=== PATIENT | female | born 1940 | race Caucasian/White ===

== ENCOUNTER → 2016-09-01 | Outpatient (CLI) | payer OTHER ==
[~2016-09-01] MED LIST: ALEVE220 M1 PO; AMLODIPINE BESY10 MG OR; APAP500 PO; ASPIRIN EC325 M1 PO; ASPIRIN EC81 M1 PO; ASPIRIN325 PO; ASPIRIN81 M2 PO; ATENOLOL 100MG100 M2 PO; BACTRIM PO; BENZONATATE100 MG PO; BYSTOLIC10 MG PO; BYSTOLIC20 MG PO; CEPHALEXIN 500500 M1 PO; COUMADIN 3 MG TA3 MG PO; EFFIENT10 MG PO; FAMOTIDINE20 MG PO; GLIPIZIDE XL10 MG PO; GLUCOPHAGE XR500 MG PO; GLUCOPHAGE1000 MG PO; GLYBURIDE 5 MG T5 M1 PO; HCTZ PO; HYDROCHLOROTHIA25 M1 PO; HYDROCHLOROTHIA25 M2 PO; ICY HOT PAIN70.8 GM; ICY HOT1 EAC1 TOP; LIPITOR80 MG PO; LISINOPRIL20 MG PO; LORTAB 5 MG/5001 TA1 PO; LOSARTAN POTASS50 MG PO; MOBIC15 MG PO; MOM PO; MULTIVITAMINS1 EAC7 PO; NEXIUM40 MG; NEXIUM40 MG PO; NORVASC 2.5 MG2.5 M1 PO; NORVASC 5 MG TAB5 MG PO; PERCOCET 5-3251 EACH PO; PLAVIX 75 MG TA75 M1 PO; PLAVIX 75 MG TA75 MG PO; SENOKOT-S1 TA1 PO; TESSALON PERLE100 MG PO; VOLTAREN GEL 1100 G1 TOP; VOLTAREN GEL 1100 G2; ZOCOR40 MG PO
== END ==
LOC: RAD 09:20
DX: M79.1 Myalgia (principal)

== ENCOUNTER → 2018-01-19 | Outpatient (CLI) | payer OTHER | LOC: RAD 14:14 | DX: M25.512 Pain in left shoulder (principal) ==

== ENCOUNTER → 2019-08-28 | Outpatient (CLI) | payer OTHER ==
[~2019-08-28] MED LIST changes: +ALLOPURINOL 10100 M1 PO; +METFORMIN HCL500 M3 PO; +MITIGARE0.6 MG PO; +NITROSTAT0.4 M1 SUBLING; +TRAMADOL 50 MG50 MG PO
== END ==
LOC: SJCVCIMAG 08-14 17:01
PROVIDERS: ATTEND Internal Medicine Cardiovascular Disease
DX: I08.2 Rheumatic disorders of both aortic and tricuspid valves (principal); E78.00 Pure hypercholesterolemia, unspecified; I27.20 Pulmonary hypertension, unspecified; I25.10 Atherosclerotic heart disease of native coronary artery without angina pectoris; I73.9 Peripheral vascular disease, unspecified; Z87.891 Personal history of nicotine dependence; Z79.899 Other long term (current) drug therapy; Z79.82 Long term (current) use of aspirin; Z95.1 Presence of aortocoronary bypass graft; Z88.8 Allergy status to other drugs, medicaments and biological substances; Z95.828 Presence of other vascular implants and grafts

== ENCOUNTER → 2019-09-13 | Outpatient (CLI) | payer OTHER ==
[~2019-09-13] VITALS: Ht 167.6 cm; Wt 73.9 kg
[2019-09-13 07:05] VITALS: BP 159/40
[2019-09-13 07:20] LABS: HEMATOCRIT 38.9 % (37.0-47.0); HEMOGLOBIN 12.8 gm/dL (12.0-15.0); MCHC 32.8 g/dL (28.0-37.0); MCV 94.3 fL (80.0-100.0); RBC 4.12 mil/uL (4.20-5.00); RDW 14.8 % (10.5-14.5)
[2019-09-13 07:37] LABS: CALCIUM 9.5 mg/dL (8.5-10.1); CREATININE 1.3 mg/dL (0.6-1.0); POTASSIUM 5.4 mmol/L (3.5-5.1)
--- NOTE | 2019-09-14 11:47 | EKG ---
[facility] Ellie [address] [address] ELECTROCARDIOGRAM REPORT Name: KAMRYN YOUNGBLOOD Room #: REG [facility].#: [id number] Admission: 09/13/19 Attend Phys: Salvador David MD Discharge: Date of : 44 Report #: [id number] THIS REPORT FOR: cc: Kavin Locke MD, Rene P. MD Couchonnal, Luis F. 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 ALEXANDER : 1940 Requested By: Hasmukh Dalton Order Number: [id number] MD: Inderjit Becerra Measurements Intervals [place] Rate: 61 P: 76 SD: 195 QRS: 12 QRSD: 117 T: 162 QT: 426 QTc: 429 Interpretive Statements Sinus rhythm Probable left atrial enlargement LVH with secondary repolarization abnormality Anteroseptal infarct, possibly acute Compared to ECG 09/20/2011 07:48:47 Electronically Signed On 09-14-2019 11:46:15 CDT by Inderjit Becerra [email or web address] <ELECTRONICALLY SIGNED> By: Inderjit Beecrra MD 09/14/19 1146 5 0706 Inderjit Becerra MD /EPI
== END | disposition home or self-care (01) ==
LOC: CATH 06:43
PROVIDERS: Internal Medicine Cardiovascular Disease; ATTEND Nuclear Medicine Nuclear Cardiology
DX: I25.10 Atherosclerotic heart disease of native coronary artery without angina pectoris (principal); I70.238 Atherosclerosis of native arteries of right leg with ulceration of other part of lower leg; I70.213 Atherosclerosis of native arteries of extremities with intermittent claudication, bilateral legs; L97.919 Non-pressure chronic ulcer of unspecified part of right lower leg with unspecified severity; I70.1 Atherosclerosis of renal artery; I10 Essential (primary) hypertension; E78.5 Hyperlipidemia, unspecified; N28.9 Disorder of kidney and ureter, unspecified; E11.9 Type 2 diabetes mellitus without complications; K21.9 Gastro-esophageal reflux disease without esophagitis; M06.9 Rheumatoid arthritis, unspecified; M10.9 Gout, unspecified; Z95.1 Presence of aortocoronary bypass graft; Z98.890 Other specified postprocedural states; Z90.710 Acquired absence of both cervix and uterus; Z90.49 Acquired absence of other specified parts of digestive tract; Z79.899 Other long term (current) drug therapy

== ENCOUNTER → 2020-03-03 | Outpatient (CLI) | payer OTHER | LOC: SJCVCIMAG 08:47 | PROVIDERS: ATTEND Internal Medicine Cardiovascular Disease | DX: I70.203 Unspecified atherosclerosis of native arteries of extremities, bilateral legs (principal); R94.31 Abnormal electrocardiogram [ECG] [EKG]; I25.10 Atherosclerotic heart disease of native coronary artery without angina pectoris; E78.00 Pure hypercholesterolemia, unspecified; I77.9 Disorder of arteries and arterioles, unspecified; E11.9 Type 2 diabetes mellitus without complications; I12.9 Hypertensive chronic kidney disease with stage 1 through stage 4 chronic kidney disease, or unspecified chronic kidney disease; N18.9 Chronic kidney disease, unspecified; I70.1 Atherosclerosis of renal artery; Z95.1 Presence of aortocoronary bypass graft; Z95.2 Presence of prosthetic heart valve; Z79.82 Long term (current) use of aspirin; Z79.899 Other long term (current) drug therapy; Z87.891 Personal history of nicotine dependence ==

== ENCOUNTER → 2020-03-13 | Outpatient (CLI) | payer OTHER ==
[~2020-03-13] VITALS: Ht 167.6 cm; Wt 75.7 kg
[~2020-03-13] MED LIST changes: +EDARBI40 MG PO; +OMEPRAZOLE10 MG PO
[2020-03-13 07:25] VITALS: BP 132/62
[2020-03-13 07:42] LABS: HEMATOCRIT 35.7 % (37.0-47.0); HEMOGLOBIN 11.4 gm/dL (12.0-15.0); MCH 30.1 pg (26.0-34.0); MCHC 31.9 g/dL (28.0-37.0); MCV 94.4 fL (80.0-100.0); RBC 3.78 mil/uL (4.20-5.00); RDW 15.4 % (10.5-14.5); WBC 5.9 thou/uL (4.0-11.0)
[2020-03-13 07:47] LABS: CALCIUM 10.1 mg/dL (8.5-10.1); CREATININE 1.5 mg/dL (0.6-1.0)
--- NOTE | 2020-03-13 14:40 | CATHLAB ---
[facility] [place] [address] INVASIVE PROCEDURE REPORT Name: KAMRYN YOUNGBLOOD Room #: REG BRIT [facility]#: [id number] Admission: 03/13/20 Attend Phys: Salvador David MD Discharge: Date of : 42 Report #: [id number] THIS REPORT FOR: cc: Kavin Locke MD, Rene P. MD Mancuso, Gerald M. MD [facility] ~ APPROVED REPORT Study performed: 03/13/2020 09:55:02 Patient Details Patient Status: Out-Patient Room #: The patient is a 79 year-old female Event Personnel Hasmukh Dalton Chief Nursing Officer, Lexie Escobar RTR Monitor, Brenna Smith RT(R)() Nury Rosenberg Wes RN Procedures Performed Coronaries Angiography and Bypass Grafts 442637 CORCABG Hemostasis w/ Mynx 03859 Initial Mod Sed Same Phys/QHP Gr5y 286871 20055 Mod Sed Same Phys/QHP Ea 398096 Procedure Narrative The was infiltrated with 1% Lidocaine subcutaneous anesthesia. A SHEATH BRITE-TIP 6F X 11CM ([id number]) sheath was inserted into the LFA^. Coronary angiography was performed using coronary diagnostic catheters. The right coronary system was accessed and visualized with a JR4 catheter. The left coronary system was accessed and visualized with a JL4 catheter. Closure device was deployed with a Fr MYNXGRIP 6/7F #[id number]. The patient tolerated the procedure well and there were no complications associated with the procedure. There was no hematoma. Intraoperative Conscious Sedation Sedation start time: 8:23 Case end Time: 10:38 Fentanyl 150 mcg Versed 3 mg Sedation and fluoro is a combination of a runoff procedure and a heart cath procedure. Fluoro Time: 14.21 minutes Dose: DAP 71091.60 cGycm2 785 mGy Contrast Type and Amount: Visipaque 149 ml [facility] [place] [address] INVASIVE PROCEDURE REPORT Name: KAMRYN YOUNGBLOOD Room #: REG [facility]#: [id number] Admission: 03/13/20 Attend Phys: Salvador David, Discharge: Date of : 42 Report #: [id number] Hemodynamics The aortic pressure is 194/60 mmHg with a mean of 111 mmHg. PCI Technique Lesion Percutaneous coronary intervention was performed on the Tibio-peroneal trunk. Conclusion #1. Left main moderately disease giving rise to an occluded LAD and the circumflex OM which is moderate in distribution. #2 circumflex OM is an eccentric 50 to 60% proximal lesion with brisk flow into a moderate size distal vessel. This does not appear progressed significantly since the prior exam. #3 LAD is proximally occluded #4 a CUELLO to LAD is intact with diffuse disease in the relatively small LAD system. No significant occlusive disease #5 the [place] right coronary artery occluded proximally #6 graft to the PDA occluded #7 probable radial graft has an eccentric proximal lesion of 40 to 50% filling a moderately extensive diagonal branch small in caliber but patent. Recommendations and plan: Continue aggressive risk factor modification. No clear evidence for coronary intervention here. Minimal progression since prior exam. <ELECTRONICALLY SIGNED> By: Hasmukh Dalton MD, FACC 03/13/20 1440 39 39 Hasmukh Dalton MD, FACC /INF
== END | disposition home or self-care (01) ==
LOC: CATH 06:54
PROVIDERS: ATTEND Nuclear Medicine Nuclear Cardiology
DX: I25.810 Atherosclerosis of coronary artery bypass graft(s) without angina pectoris (principal); I70.221 Atherosclerosis of native arteries of extremities with rest pain, right leg; I70.1 Atherosclerosis of renal artery; I10 Essential (primary) hypertension; E11.9 Type 2 diabetes mellitus without complications; E78.00 Pure hypercholesterolemia, unspecified; K21.9 Gastro-esophageal reflux disease without esophagitis; M10.9 Gout, unspecified; M06.9 Rheumatoid arthritis, unspecified; Z98.890 Other specified postprocedural states; Z79.899 Other long term (current) drug therapy; Z86.73 Personal history of transient ischemic attack (TIA), and cerebral infarction without residual deficits; Z90.49 Acquired absence of other specified parts of digestive tract; Z90.710 Acquired absence of both cervix and uterus; Z95.1 Presence of aortocoronary bypass graft; Z79.01 Long term (current) use of anticoagulants; Z95.2 Presence of prosthetic heart valve; Z87.891 Personal history of nicotine dependence; Z79.82 Long term (current) use of aspirin

== ENCOUNTER → 2020-05-06 | Outpatient (CLI) | payer OTHER | LOC: LAB 11:23 | PROVIDERS: ATTEND Family Medicine | DX: R05 Cough (principal); Z20.822 Contact with and (suspected) exposure to COVID-19 ==

== ENCOUNTER → 2020-05-08 | Outpatient (CLI) | payer OTHER | LOC: RAD 12:51 | PROVIDERS: ATTEND Family Medicine | DX: J98.8 Other specified respiratory disorders (principal); J98.11 Atelectasis; J92.9 Pleural plaque without asbestos; J90 Pleural effusion, not elsewhere classified; J98.4 Other disorders of lung ==

== ENCOUNTER → 2020-05-21 | Outpatient (CLI) | payer OTHER | LOC: RAD 11:50 | PROVIDERS: ATTEND Family Medicine | DX: J90 Pleural effusion, not elsewhere classified (principal); I50.9 Heart failure, unspecified; J98.4 Other disorders of lung ==

== ENCOUNTER → 2020-06-02 | Outpatient (CLI) | payer OTHER | LOC: SJCVCIMAG 07:53 | PROVIDERS: ATTEND Nuclear Medicine Nuclear Cardiology | DX: I70.202 Unspecified atherosclerosis of native arteries of extremities, left leg (principal); I25.10 Atherosclerotic heart disease of native coronary artery without angina pectoris; I77.9 Disorder of arteries and arterioles, unspecified; I70.1 Atherosclerosis of renal artery; I35.2 Nonrheumatic aortic (valve) stenosis with insufficiency; E78.00 Pure hypercholesterolemia, unspecified; E11.22 Type 2 diabetes mellitus with diabetic chronic kidney disease; I12.9 Hypertensive chronic kidney disease with stage 1 through stage 4 chronic kidney disease, or unspecified chronic kidney disease; N18.9 Chronic kidney disease, unspecified; K21.9 Gastro-esophageal reflux disease without esophagitis; M06.9 Rheumatoid arthritis, unspecified; Z98.890 Other specified postprocedural states; Z95.1 Presence of aortocoronary bypass graft; Z95.2 Presence of prosthetic heart valve; Z88.8 Allergy status to other drugs, medicaments and biological substances; Z79.82 Long term (current) use of aspirin; Z79.84 Long term (current) use of oral hypoglycemic drugs; Z79.899 Other long term (current) drug therapy; Z87.891 Personal history of nicotine dependence; Z82.49 Family history of ischemic heart disease and other diseases of the circulatory system ==

== ENCOUNTER → 2020-09-01 | Outpatient (CLI) | payer OTHER | LOC: SJCVCIMAG 09:28 | PROVIDERS: ATTEND Nuclear Medicine Nuclear Cardiology | DX: I70.203 Unspecified atherosclerosis of native arteries of extremities, bilateral legs (principal); R94.31 Abnormal electrocardiogram [ECG] [EKG]; I25.10 Atherosclerotic heart disease of native coronary artery without angina pectoris; I77.9 Disorder of arteries and arterioles, unspecified; E78.00 Pure hypercholesterolemia, unspecified; K21.9 Gastro-esophageal reflux disease without esophagitis; N18.9 Chronic kidney disease, unspecified; E11.22 Type 2 diabetes mellitus with diabetic chronic kidney disease; I12.9 Hypertensive chronic kidney disease with stage 1 through stage 4 chronic kidney disease, or unspecified chronic kidney disease; I70.1 Atherosclerosis of renal artery; E11.51 Type 2 diabetes mellitus with diabetic peripheral angiopathy without gangrene; E78.2 Mixed hyperlipidemia; Z90.49 Acquired absence of other specified parts of digestive tract; Z95.2 Presence of prosthetic heart valve; Z90.710 Acquired absence of both cervix and uterus; Z95.1 Presence of aortocoronary bypass graft; Z88.8 Allergy status to other drugs, medicaments and biological substances; Z79.82 Long term (current) use of aspirin; Z79.84 Long term (current) use of oral hypoglycemic drugs; Z79.899 Other long term (current) drug therapy; Z87.891 Personal history of nicotine dependence; Z82.49 Family history of ischemic heart disease and other diseases of the circulatory system ==

== ENCOUNTER → 2021-01-20 | Outpatient (CLI) | payer OTHER | LOC: SJCVCIMAG 08:22 | PROVIDERS: ATTEND Internal Medicine Cardiovascular Disease | DX: I49.3 Ventricular premature depolarization (principal); I70.201 Unspecified atherosclerosis of native arteries of extremities, right leg; I77.9 Disorder of arteries and arterioles, unspecified; I12.9 Hypertensive chronic kidney disease with stage 1 through stage 4 chronic kidney disease, or unspecified chronic kidney disease; E11.22 Type 2 diabetes mellitus with diabetic chronic kidney disease; N18.9 Chronic kidney disease, unspecified; I65.21 Occlusion and stenosis of right carotid artery; I25.10 Atherosclerotic heart disease of native coronary artery without angina pectoris; K21.9 Gastro-esophageal reflux disease without esophagitis; E78.5 Hyperlipidemia, unspecified; M06.9 Rheumatoid arthritis, unspecified; Z79.82 Long term (current) use of aspirin; Z79.84 Long term (current) use of oral hypoglycemic drugs; Z79.899 Other long term (current) drug therapy; Z87.891 Personal history of nicotine dependence; Z95.2 Presence of prosthetic heart valve; Z95.1 Presence of aortocoronary bypass graft; Z88.8 Allergy status to other drugs, medicaments and biological substances; Z72.89 Other problems related to lifestyle; Z82.49 Family history of ischemic heart disease and other diseases of the circulatory system ==

== ENCOUNTER → 2021-02-04 | Outpatient (CLI) | payer OTHER ==
[~2021-02-04] VITALS: Ht 170.2 cm; Wt 65.8 kg
[~2021-02-04] MED LIST changes: +BREZTRI AEROS10.7 GM INH; +FAMOTIDINE 20 M20 MG PO
[2021-02-04 09:15] VITALS: BP 130/48
[2021-02-04 09:42] LABS: HEMATOCRIT 29.8 % (37.0-47.0); HEMOGLOBIN 9.6 gm/dL (12.0-15.0); MCH 30.5 pg (26.0-34.0); MCHC 32.2 g/dL (28.0-37.0); MCV 94.5 fL (80.0-100.0); RBC 3.15 mil/uL (4.20-5.00); RDW 16.5 % (10.5-14.5); WBC 5.3 thou/uL (4.0-11.0)
[2021-02-04 09:52] LABS: CALCIUM 8.9 mg/dL (8.5-10.1); CREATININE 2.2 mg/dL (0.6-1.0); POTASSIUM 4.2 mmol/L (3.5-5.1)
--- NOTE | 2021-02-04 17:41 | CATHLAB ---
[facility] [place] [address] INVASIVE PROCEDURE REPORT Name: KAMRYN YOUNGBLOOD Room #: REG BRIT Ibarra.#: [id number] Admission: 02/04/21 Attend Phys: Salvador David MD Discharge: Date of : 42 Report #: [id number] THIS REPORT FOR: cc: Kavin Locke MD, Rene P. MD Mancuso, Gerald M. MD [facility] ~ APPROVED REPORT Study performed: 02/04/2021 11:38:53 Patient Details Patient Status: Out-Patient Room #: The patient is a 80 year-old female Event Personnel Hasmukh Dalton Poultry Boner, Elvis Silveira RN RN, Omar Gibson RT(R)(CV) Darren Rosenberg Roberta Monitor Procedures Performed Art Access - R femoral artery* Hunter Access - R femoral vein Right and Left Heart Cath Lt Vent/Cors/Grafts 3672966 RLLVCORCAB 07537 Initial Mod Sed Same Phys/QHP Gr5y 580643 Hemostasis w/ Mynx Indication Chest pain Procedure Narrative A SHEATH BRITE-TIP 6F X 11CM (048441) sheath was inserted into the LFA^. Coronary angiography was performed using coronary diagnostic catheters. The right coronary system was accessed and visualized with a JR4 catheter. The left coronary system was accessed and visualized with a JL4 catheter. The left ventricle was accessed and visualized with a NO LV PERFORMED catheter. The patient tolerated the procedure well and there were no complications associated with the procedure. Closure device used in the LFA, manual pressure for the LFV. Intraoperative Conscious Sedation Fentanyl mcg Versed mg Contrast Type and Amount: Visipaque 400 ml Hemodynamics [facility] [address] [place] [address] INVASIVE PROCEDURE REPORT Name: YOUNGBLOODKAMRYN ANAWALIMARK Room #: REG CL [facility]#: [id number] Admission: 02/04/21 Attend Phys: Salvador David, Discharge: Date of : 42 Report #: [id number] The right ventricular pressure is 77/4 mmHg. The pulmonary artery pressure is 63/14 mmHg with a mean of 38 mmHg. The mean pulmonary capillary wedge pressure is 21 mmHg. The aortic pressure is 118/78 mmHg with a mean of mmHg. The cardiac output using thermo method is 4.35 L/min. The cardiac index using thermo method is 2.47 L/min/m2. Patient has grafts. CUELLO TO LAD and SVG TO Diag. open and patent. The upper [place] rca and svg-pda occluded as previous study from 02/2020. PCI Technique Lesion Percutaneous coronary intervention was performed on the Popliteal. Conclusion #1 Successful right heart catheterization with cardiac output by thermodilution. Significant pulmonary pressure elevation see above hemodynamics. #2 left main mildly disease giving rise to LAD which occludes and a circumflex. #3 LAD is intact filling a diffusely diseased LAD. #4 upper [place] circumflex intact with a 50% eccentric proximal lesion mild distal disease with a large OM branch distally and a small PDA. Probable was a least codominant system. #5 the upper [place] right and the graft to the PDA are occluded from prior exam. #6 a graft to a large diagonal system which appears to parallel the LAD is intact there is an eccentric 50 to 60% lesion in the proximal graft looks like this may have been a radial graft. Recommendations and plan: Continue aggressive risk factor modification. No indication for intervention the coronary system will follow. Significant pulmonary hypertension does not appear to be volume related. Will initiate Roxana fill 20 [address] times daily [address] have Dr[address] Carlito Martinez of pulmonary service see the patient outpatient patient clinic. <ELECTRONICALLY SIGNED> By: Hasmukh Dalton MD, FACC 02/04/211740 40 40 Hasmukh Dalton MD, FACC /INF
== END | disposition home or self-care (01) ==
LOC: CATH 08:08
PROVIDERS: ATTEND Nuclear Medicine Nuclear Cardiology
DX: R07.9 Chest pain, unspecified (principal); I25.10 Atherosclerotic heart disease of native coronary artery without angina pectoris; I70.211 Atherosclerosis of native arteries of extremities with intermittent claudication, right leg; I70.1 Atherosclerosis of renal artery; M79.604 Pain in right leg; M79.605 Pain in left leg; I10 Essential (primary) hypertension; E78.00 Pure hypercholesterolemia, unspecified; E11.9 Type 2 diabetes mellitus without complications; K21.9 Gastro-esophageal reflux disease without esophagitis; M06.9 Rheumatoid arthritis, unspecified; M10.9 Gout, unspecified; Z98.890 Other specified postprocedural states; Z79.899 Other long term (current) drug therapy; Z90.49 Acquired absence of other specified parts of digestive tract; Z95.1 Presence of aortocoronary bypass graft; Z90.710 Acquired absence of both cervix and uterus; Z95.2 Presence of prosthetic heart valve; Z86.73 Personal history of transient ischemic attack (TIA), and cerebral infarction without residual deficits

== ENCOUNTER 2021-03-12 19:09 | Inpatient (IN) | payer OTHER ==
[~2021-03-12] VITALS: Ht 167.6 cm; Wt 67.1 kg
[2021-03-12 19:23] VITALS: BP 109/44
[2021-03-12 19:43] LABS: ABSOLUTE NEUTROPHILS 5.7 thou/uL (1.4-8.2); BASOPHILS 1.1 % (0.0-2.0); EOSINOPHILS 1.9 % (0.0-3.0); HEMATOCRIT 31.5 % (37.0-47.0); HEMOGLOBIN 10.1 gm/dL (12.0-15.0); LYMPHOCYTES 15.4 % (24.0-44.0); MCH 30.2 pg (26.0-34.0); MCHC 31.9 g/dL (28.0-37.0); MCV 94.5 fL (80.0-100.0); MONOCYTES 5.7 % (1.0-8.0); PLATELET COUNT 141 thou/uL (150-400); POLYS 75.9 % (36.0-66.0); RBC 3.33 mil/uL (4.20-5.00); RDW 15.9 % (10.5-14.5); WBC 7.5 thou/uL (4.0-11.0)
[2021-03-12 19:52] LABS: CREATININE 2.2 mg/dL (0.6-1.0); POTASSIUM 4.4 mmol/L (3.5-5.1)
[2021-03-12] MEDS ORDERED: FUROSEMIDE 20 M20 MG (23:46)
[2021-03-12] MEDS ORDERED: SILDENAFIL20 MG PO (23:46)
[2021-03-13] VITALS (82 sets, daily range): BP systolic 97–165; BP diastolic 29–69
--- NOTE | 2021-03-13 00:21 | NUR ---
PT GIVES PERMISSION TO TALK TO HER DAUGHTER (KEVIN) ANY INFORMATION ABOUT HER VISIT. KEVIN WILL CALL IN THE MORNING TO GET AN UPDATE
[2021-03-13 01:29] LABS: BE(vivo) -5.2 mmol/L (-2 to +3); HCO3 19.8 mmol/L (22.0-26.0); PCO2 36.5 mmHg (35.0-45.0); pH 7.352 (7.360-7.450); sO2 85.9 % (92.0-98.0)
[2021-03-13 01:30] LABS: PO2 52.6 mmHg (80.0-100.0)
[2021-03-13 01:42] LABS: URINE BILIRUBIN 1+ (Negative); URINE BLOOD NEGATIVE (Negative); URINE CLARITY SL CLOUDY; URINE COLOR YELLOW; URINE GLUCOSE-RANDOM* NEGATIVE (Negative); URINE KETONES NEGATIVE (Negative); URINE LEUKOCYTES 1+ (Negative); URINE NITRITE NEGATIVE (Negative); URINE PROTEIN (DIPSTICK) 1+ (Negative); URINE SPECIFIC GRAVITY >= 1.030 (1.005-1.035); URINE UROBILINOGEN 0.2 E.U./dl (0.2-1.0)
[2021-03-13 01:45] LABS: ICTOTEST (BILI CONFIRMATORY) Positive (Negative)
[2021-03-13 01:49] LABS: BACTERIA 1-9 Few /HPF (None Seen); HYALINE CASTS 4-10 Moderate /LPF (None Seen); MUCUS 0-3 Light strn/LPF (None Seen); SQUAMOUS 0-3 Few /LPF (0-3); URINE RBC 1-2 Rare /HPF (NONE SEEN); URINE WBC 6-15 Few /HPF (NONE SEEN)
[2021-03-13 01:50] LABS: URIC ACID CRYSTALS 0-3 Few /LPF (None Seen)
[2021-03-13 02:30] LABS: AMP/METHAMP Negative (Negative); BARBITURATES Negative (Negative); BENZODIAZEPINES Negative (Negative); COCAINE Negative (Negative); METHADONE Negative (Negative); OPIATES Negative (Negative); PCP Negative (Negative)
[2021-03-13 04:08] LABS: CALCIUM 8.9 mg/dL (8.5-10.1); CREATININE 2.1 mg/dL (0.6-1.0); HEMATOCRIT 33.4 % (37.0-47.0); HEMOGLOBIN 10.6 gm/dL (12.0-15.0); MCH 30.1 pg (26.0-34.0); MCHC 31.9 g/dL (28.0-37.0); MCV 94.5 fL (80.0-100.0); POTASSIUM 4.4 mmol/L (3.5-5.1); RBC 3.53 mil/uL (4.20-5.00); RDW 16.6 % (10.5-14.5); WBC 10.2 thou/uL (4.0-11.0)
[2021-03-13 04:54] LABS: BE(vivo) -5.5 mmol/L (-2 to +3); HCO3 19.6 mmol/L (22.0-26.0); PCO2 36.9 mmHg (35.0-45.0); PO2 197.2 mmHg (80.0-100.0); pH 7.344 (7.360-7.450); sO2 99.3 % (92.0-98.0)
--- NOTE | 2021-03-13 07:21 | NUR ---
ASSUMED CARE OF PATIENT FROM ER. PATIENT INCREASINGLY CONFUSED. ABG DRAWN, REPORT TO YESSICA SUÁREZ AND DR STAHL. BIPAP PLACED, HALDOL GIVEN, PATIENT SLEEPING. HEPARIN GTT INITIATED PER ORDERS. POC GOALS ESTABLISHED. DAUGHTER UPDATED THIS AM.
--- NOTE | 2021-03-13 10:00 | NUR ---
DR. PAUL CALLED TROP LEVEL. ORDERS GIVEN.
--- NOTE | 2021-03-13 10:51 | EKG ---
[place] [address] [facility] [place] [address] ELECTROCARDIOGRAM REPORT Name: KAMRYN YOUNGBLOOD CARLEY Room #: 244- ADM IN M.R.#: [id number] Admission: 03/12/21 Attend Phys: Sonido Ang MD Discharge: Date of : 42 Report #: [id number] 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: ANNETTA : 1940 Requested By: Ang Glover Order Number: [id number] MD: Ang Glover Measurements Intervals [place] Rate: 58 P: 85 AR: 175 QRS: 22 QRSD: 122 T: 199 QT: 467 QTc: 459 Interpretive Statements Sinus rhythm Probable left atrial enlargement Left bundle branch block pattern Compared to ECG 03/12/2021 19:39:56 No significant change Electronically Signed On 03-13-2021 10:50:49 [employer]PERVISOR D[employer] by Ang Glover [email or web address] <ELECTRONICALLY SIGNED> By: Ang Glover MD 03/13/21 1050 2 08 Ang Glover MD /EDILBERTO
--- NOTE | 2021-03-13 10:57 | EKG ---
[place] [address] [facility] [place] [address] ELECTROCARDIOGRAM REPORT Name: KAMRYN YOUNGBLOOD Room #: 244-P ADM IN M.R.#: [id number] Admission: 03/12/21 Attend Phys: Sonido Ang MD Discharge: Date of : 42 Report #: [id number] [facility] ED Test Date: 2021-03-12 Test Time: 19:39:56 Pat Name: KAMRYN YOUNGBLOOD Department: Room: 244 Gender: F Manager Mountain: anel michelle : 1940 Requested By: Shaq Jc Order Number: [id number] MD: Ang Glover Measurements Intervals [place] Rate: 38 P: 64 NE: 135 QRS: 6 QRSD: 119 T: 149 QT: 504 QTc: 401 Interpretive Statements Sinus bradycardia, APC Left bundle branch block pattern Compared to ECG 09/13/2019 07:06:44 Sinus rhythm no longer present Myocardial infarct finding still present Electronically Signed On 03-13-2021 10:57:03 CENTRAL STATION OPERATOR by Ang Glover [email or web address] <ELECTRONICALLY SIGNED> By: Ang Glover MD 03/13/21 1057 38 38 Ang Glover MD /EDILBERTO
--- NOTE | 2021-03-13 16:49 | 2DMMODE ---
[facility] [place] [address] 2 D/M-MODE ECHOCARDIOGRAM Name: KAMRYN YOUNGBLOOD Room #: 244-P ADM IN ..#: [id number] Admission: 03/12/21 Attend Phys: Sonido Ang MD Discharge: Date of : 42 Report #: [id number] THIS REPORT FOR: cc: Kavin Locke MD, Rene P. MD Park, Jin S. MD ~ APPROVED REPORT Study performed: 03/13/2021 09:55:58 EXAM: Comprehensive 2D, Doppler, and color-flow Echocardiogram Patient Location: In-Patient Room #: 244 Status: routine BSA: 1.75 HR: 49 bpm Rhythm: NSR Other Information Study Quality: Adequate Indications Aortic Valve Disease 2D Dimensions RVDd: 24.99 mm IVSd: 9.79 (7-11mm) LVOT Diam: 18.01 (18-24mm) LVDd: 51.03 mm PWd: 6.83 (7-11mm) Ascending Ao: 48.71 (22-36mm) Left Atrium: 51.10 (27-40mm) Aortic Root: 26.17 mm LV Single Plane 4CH: 52.52 % Volumes Left Atrial Volume (Systole) Single Plane 4CH: 34.50 mL Single Plane 2CH: 45.71 mL Aortic Valve AoV Peak [place].: 3.34 m/s AO Peak Gr.: 44.52 mmHg AO Mean Gr.: 24.13 mmHg AO V2 Mean: 2.34 m/s AO V2 VTI: 92.35 cm [facility] [address] [place] [address] 2 D/M-MODE ECHOCARDIOGRAM Name: RYLIEKAMRYN ANARISA Room #: 244-P [facility] IN .R.#: [id number] Admission: 03/12/21 Attend Phys: Sonido Ang MD Discharge: Date of : 42 Report #: [id number] Mitral Valve E/A Ratio: 1.0 MV Decel. Time: 117.84 ms MV E Max [place].: 0.81 m/s MV A [place].: 0.83 m/s MV PHT: 34.17 ms Pulmonary Valve PV Peak [place].: 1.19 m/s PV Peak Gr.: 5.62 mmHg Tricuspid Valve TR Peak [place].: 3.26 m/s TR Peak Gr.: 42.49 mmHg Left Ventricle The left ventricle is normal size. Mild concentric left ventricular hypertrophy. The left ventricular systolic function is low-normal. LVEF is 50%. Grade II - pseudonormal filling dynamics. Right Ventricle The right ventricle is normal size. The right ventricular systolic function is normal. Atria Left atrium is mildly dilated. Right atrium is mildly dilated. Aortic Valve Bioprosthetic aortic valve is present. Mild to moderate aortic regurgitation. Peak gradient of 43mm Hg Mitral Valve Mitral valve leaflets are mildly thickened. Mild to moderate mitral regurgitation. No evidence of mitral valve stenosis. Tricuspid Valve The tricuspid valve is normal in structure. Mild to moderate tricuspid regurgitation. Estimated PAP 50 mmHg. Pulmonic Valve The pulmonary valve is normal in structure. Mild pulmonic regurgitation. Great Vessels The aortic root is normal in size. IVC is normal in size and [facility] [address] [place] [address] 2 D/M-MODE ECHOCARDIOGRAM Name: KAMRYN OYUNGBLOOD Room #: 244-P [facility] IN .R.#: [id number] Admission: 03/12/21 Attend Phys: Sonido Ang MD Discharge: Date of : 42 Report #: [id number] collapses >50% with inspiration. Pericardium There is no pericardial effusion. Critical Notification Critical Value: No <Conclusion> The left ventricle is normal size. Mild concentric left ventricular hypertrophy. The left ventricular systolic function is low-normal. LVEF is 50%. The right ventricle is normal size. Left atrium is mildly dilated. Bioprosthetic aortic valve is present, with peak gradient of 43mm Hg. Mild to moderate aortic regurgitation. Mild to moderate mitral regurgitation. Mild to moderate tricuspid regurgitation. Estimated PAP 50 mmHg. <ELECTRONICALLY SIGNED> By: Ang Glover MD 03/13/21 1648 1648 1648 Ang Glover MD /DAYLIN
--- NOTE | 2021-03-13 18:35 | NUR ---
pt tolorating off bipap. no appitite. diuresing.
--- NOTE | 2021-03-13 23:47 | NUR ---
assumed pt care at 1900, alert and oriented, sr on telemetry, hr>60, diastolic bp in the 30s with a map <60, cardiology notified, no orders received, will continue to monitor as per cardiology, c/o bilateral wrist pain, tyl given with partial relief, denies cp, remains on venturi mask, o2 sat stable AT 99%, adequate u/o from heller, heparing gtt infusing as per protocol, will continue to monitor
[2021-03-14] VITALS (23 sets, daily range): BP systolic 110–153; BP diastolic 29–92
[2021-03-14 01:05] LABS: HEMATOCRIT 28.5 % (37.0-47.0); HEMOGLOBIN 9.2 gm/dL (12.0-15.0); MCH 30.3 pg (26.0-34.0); MCHC 32.3 g/dL (28.0-37.0); MCV 93.8 fL (80.0-100.0); RBC 3.03 mil/uL (4.20-5.00); RDW 16.2 % (10.5-14.5); WBC 7.1 thou/uL (4.0-11.0)
[2021-03-14 01:32] LABS: CALCIUM 8.9 mg/dL (8.5-10.1); POTASSIUM 3.5 mmol/L (3.5-5.1)
--- NOTE | 2021-03-14 07:59 | HC ---
[facility] [place] [address] CONSULTATION Name: KAMRYN YOUNGBLOOD Room #: 244-P ADM IN M.R.#: [id number] Admission: 03/12/21 Attend Phys: Sonido Ang MD Discharge: Date of : 42 Report #: [id number] THIS REPORT FOR: cc: Kavin Locke MD, Rene P. MD Park, Jin S. MD ~ DATE OF SERVICE: 03/13/2021 CARDIOLOGY CONSULTATION INDICATION: Bradycardia. 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 Several days ago, she passed out at work and was taken to [facility]. An echo there revealed apparent EF in the 45% range and PVCs. Further workup was recommended; however, she declined and left the hospital, but was given a prescription for Cardizem. She took Cardizem on top of her regular medication of Bystolic. Recently, sildenafil was added to her regimen for a diagnosis of pulmonary hypertension. Last evening, she started to feel generalized weakness and lightheadedness and presented to the ER for an evaluation. According to the notes, at one point the heart rate was in 30 beats per minute range and she was given atropine. She was initially admitted to the hospital, but later on developed hypotension requiring hydration. Then, she developed issues with hypoxia requiring Lasix therapy. There was an episode of confusion last evening, CT of the head did not show any acute abnormality. This morning, she is alert and oriented and appears to be back to her baseline. She denies any chest pains or palpitations. She has chronic dyspnea on exertion. She denies any fever, cough or chills. PAST MEDICAL HISTORY: CAD/CABG, recent cardiac catheterization did not reveal any requirement for intervention. History of peripheral vascular disease with multiple stents. Diagnosed with pulmonary hypertension and started on sildenafil 3 times a day, CVA, diabetes, rheumatoid arthritis, renal insufficiency. MEDICATIONS: See the MAR for full listing. ALLERGIES: DSMO WHICH IS A CORTISONE CREAM USING ANIMALS. SOCIAL HISTORY: Negative for tobacco use. FAMILY HISTORY: Negative for premature CAD. REVIEW OF SYSTEMS: A full 10-point review of systems performed. Only the [facility] [address] [facility] [place] [address] CONSULTATION Name: KAMRYN YOUNGBLOOD [facility] Room #: 244-P [facility] IN M.R.#: [id number] Admission: 03/12/21 Attend Phys: Sonido Ang MD Discharge: Date of : 42 Report #: [id number] pertinent positives and negatives are described in the HPI. PHYSICAL EXAMINATION: VITAL SIGNS: Blood pressure is 130/70, heart rate is 51 beats per minute. GENERAL APPEARANCE: This is an elderly appearing female in no acute distress. HEENT: Normocephalic, atraumatic. Oral mucosa moist. NECK: Supple. LUNGS: Bibasilar crackles. CARDIAC: Regular rate and rhythm, S1, S2 positive. ABDOMEN: Soft, nontender. EXTREMITIES: No cyanosis, no edema. DIAGNOSTIC DATA: ECG #1 reveals sinus bradycardia at 38 beats per minute with a left bundle branch block pattern. LABORATORY VALUES: White count 7.5, hemoglobin is 10.1. Creatinine is 2.2. Initial troponin was 69, second one 146. ASSESSMENT AND PLAN: 1. Bradycardia, probably due to combination of Bystolic and Cardizem. Hold both medications for now. No indication for pacemaker implant at this time. 2. Respiratory failure/congestive heart failure, probably due to combination of bradycardia and fluids. Gentle diuresis. 3. Coronary artery disease/coronary artery bypass graft, stable with no complaints of angina. Recent cardiac catheterization did not require coronary intervention. 4. Peripheral arterial disease with recent procedure, continue on aspirin and Plavix. 5. Diabetes mellitus, as per PCP. 6. Pulmonary hypertension. We will hold sildenafil at this time. <ELECTRONICALLY SIGNED> By: Ang Glover MD 03/14/21 0759 0745 0817 Ang Glover MD /nt
--- NOTE | 2021-03-14 18:24 | NUR ---
REINIER WENT DOWN TO HAVE VQ SCAN AND BACK WITH THIS RN. REINIER WAS ABLE TO BE MOVED TO CCU ROOM 213. DAUGHTER WAS CALLED. NEWBERRY WAS REVOVED AND PATIENT VOIDED 100 ML. REINIER DID NOT EAT WELL TODAY. SHE WALKED AROUND ROOM WITH SUPERVISION DID WELL. REPORT CALLED TO DEREK AMES IN CCU.
--- NOTE | 2021-03-14 19:52 | NUR ---
Assumed care of pt at 18:30. Pt was A&Ox4, VS stable and afebrile. Pt has pain in both hands. Both hands are swollen and tender - managed with pain medication, ice and elevation of hands. Pt is resting in bed. No concerns at this time. Continue to monitor.
[2021-03-15 00:05] VITALS: BP 148/52
--- NOTE | 2021-03-15 03:43 | NUR ---
Assumed pt care at 1900. Pt is alert and oriented.No signof distress noted in pt. Pain medication administered upon request. Pt is stable. Fall precaution in place. Assessment completed and documented. Scheduled meds administered to pt. No acute events through the night. Continue to monitor. No further needs at this time.
[2021-03-15 04:45] VITALS: BP 135/52
[2021-03-15 05:06] LABS: CALCIUM 8.9 mg/dL (8.5-10.1); CREATININE 1.9 mg/dL (0.6-1.0); POTASSIUM 3.5 mmol/L (3.5-5.1)
[2021-03-15 05:11] LABS: HEMATOCRIT 26.8 % (37.0-47.0); HEMOGLOBIN 8.8 gm/dL (12.0-15.0); MCH 30.6 pg (26.0-34.0); MCHC 32.9 g/dL (28.0-37.0); MCV 93.1 fL (80.0-100.0); RBC 2.88 mil/uL (4.20-5.00); RDW 15.9 % (10.5-14.5)
[2021-03-15 08:33] VITALS: BP 158/74
[2021-03-15 12:12] VITALS: BP 130/51
--- NOTE | 2021-03-15 14:52 | NUR ---
PT ADMITTED FOR BRADYCARDIA, SYNCOPE. CHART REVIEWED AND DISCUSSED WITH CARE TEAM. THIS CM MET WITH PT THIS DAY. CM ROLE INTRODUCED. PT REPORTS SHE LIVES AND HOME BY HERSELF. SHE REPORTS WORKING 54 HOURS A WEEK. SHE REPORTS SHE IS INDEPENDENT WITH ALL ADLS AND MOBILITY. SHE REPORTS SHE DOES NOT UTILIZE STAIRS IN THE HOME. HER KIDS BROUGHT UP THE WASHER AND DRYER SO SHE DID NOT HAVE TOO. SHE DENIES USING ANY ASSISTIVE DEVICE. GOAL IS TO RETURN HOME ONCE MEDIALLY STABLE. NO CM INTERVENTIONS AT THIS TIME.
[2021-03-15 16:12] VITALS: BP 131/47
[2021-03-15 20:15] VITALS: BP 142/50
--- NOTE | 2021-03-16 00:41 | NUR ---
ASSESSMENT CHARTED. PT IS ALERT X 4. UP WITH SBA TO THE BATHROOM. SLIGHT PAIN TO LUE, TYLENOL GIVEN. ICEPAK APPLIED TO LEFT ARM AND IT EMAINS ELEVATED ON A PILLOW. PT REPORTS ARM FEELS BETTER AFTER GETTING SOLUMEDROL DURING DAY SHIFT. DENIES CHESTPAIN. PT PLACED ON 02/2L DURING SLEEP HOURS. NO COUGH OR SOA NOTED. SR ON TELEMETRY. CALLS WITH NEEDS.
[2021-03-16 04:45] VITALS: BP 166/57
[2021-03-16 07:30] VITALS: BP 147/34
[2021-03-16 09:59] LABS: HEMATOCRIT 31.6 % (37.0-47.0); HEMOGLOBIN 10.1 gm/dL (12.0-15.0); MCH 29.8 pg (26.0-34.0); MCHC 32.1 g/dL (28.0-37.0); MCV 92.9 fL (80.0-100.0); RBC 3.4 mil/uL (4.20-5.00); RDW 15.9 % (10.5-14.5); WBC 7.4 thou/uL (4.0-11.0)
[2021-03-16 10:10] LABS: CALCIUM 9.7 mg/dL (8.5-10.1); CREATININE 1.8 mg/dL (0.6-1.0); POTASSIUM 3.5 mmol/L (3.5-5.1)
[2021-03-16 11:00] VITALS: BP 138/37
[2021-03-16] MEDS ORDERED: JANUVIA25 MG PO (12:10)
[2021-03-16] MEDS ORDERED: ALLOPURINOL 10100 M1 PO (12:10)
[2021-03-16] MEDS ORDERED: BAYER CHEWABLE81 MG PO (12:10)
[2021-03-16] MEDS ORDERED: NORVASC5 MG PO (12:10)
[2021-03-16 14:32] VITALS: BP 138/37
--- NOTE | 2021-03-16 15:27 | NUR ---
DISCHARGE INSTRUCTIONS REVIEWED WITH PATIENT AND DAUGHTER AT BEDSIDE. PATIENT AWARE OF DISCHARGE MEDICATIONS AND FOLLOW UP APPOINTMENTS WITH PCP AND HEAVY MACHINERY ASSEMBLER. DENIES ANY QUESTIONS OR CONCERNS. SCRIPTS SENT TO PHARMACY. IV DISCONTINUED. TELE MONTITOR OFF. BELONGINGS SENT WITH PATIENT.
== END 2021-03-16 16:42 | disposition home or self-care (01) | DRG 291 ==
LOC: ER 19:09 → 2N 20:24 → EROBS 20:24 → ICU 03-13 00:55 → 2N 03-14 18:10
PROVIDERS: Emergency Medicine; Hospitalist; Internal Medicine; Internal Medicine Pulmonary Disease; Nurse Practitioner Adult Health; Nurse Practitioner Family; ADMIT Internal Medicine; ATTEND Internal Medicine
PROC: 5A09357 Assistance with Respiratory Ventilation, Less than 24 Consecutive Hours, Continuous Positive Airway Pressure (ICD-10-PCS; principal; 2021-03-13)
DX: I13.0 Hypertensive heart and chronic kidney disease with heart failure and stage 1 through stage 4 chronic kidney disease, or unspecified chronic kidney disease (principal); I50.31 Acute diastolic (congestive) heart failure; J96.01 Acute respiratory failure with hypoxia; G93.40 Encephalopathy, unspecified; J81.1 Chronic pulmonary edema; R00.1 Bradycardia, unspecified; I95.9 Hypotension, unspecified; I44.7 Left bundle-branch block, unspecified; E78.00 Pure hypercholesterolemia, unspecified; K21.9 Gastro-esophageal reflux disease without esophagitis; M06.9 Rheumatoid arthritis, unspecified; M10.9 Gout, unspecified; E11.22 Type 2 diabetes mellitus with diabetic chronic kidney disease; E11.51 Type 2 diabetes mellitus with diabetic peripheral angiopathy without gangrene; I27.20 Pulmonary hypertension, unspecified; Z20.822 Contact with and (suspected) exposure to COVID-19; I25.5 Ischemic cardiomyopathy; N18.30 Chronic kidney disease, stage 3 unspecified; I25.10 Atherosclerotic heart disease of native coronary artery without angina pectoris; Z79.82 Long term (current) use of aspirin; Z79.899 Other long term (current) drug therapy; Z95.1 Presence of aortocoronary bypass graft; Z95.820 Peripheral vascular angioplasty status with implants and grafts; Z95.5 Presence of coronary angioplasty implant and graft; Z90.710 Acquired absence of both cervix and uterus; Z90.49 Acquired absence of other specified parts of digestive tract; Z95.2 Presence of prosthetic heart valve; Z86.73 Personal history of transient ischemic attack (TIA), and cerebral infarction without residual deficits
CPT/HCPCS: 10081; 10203; 50455